=== PATIENT | male | born 1965 | race American Indian/Alaskan Native ===

== ENCOUNTER 2021-12-21 04:51 | Emergency (ER) | payer OTHER ==
[2021-12-21 04:58] VITALS: BP 143/91
[2021-12-21] MEDS ORDERED: traMADol 50 MG TAB PO ONE (05:15)
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
== END 2021-12-21 05:58 | disposition home or self-care (01) ==
LOC: EEVIPCON 04:51 → ED 04:51
DX: S39.012A Strain of muscle, fascia and tendon of lower back, initial encounter (principal); Y08.89XA Assault by other specified means, initial encounter; Y93.89 Activity, other specified; Y92.89 Other specified places as the place of occurrence of the external cause; Y99.8 Other external cause status; E11.9 Type 2 diabetes mellitus without complications
CPT/HCPCS: 99282